=== PATIENT | female | born 1975 | race African-American/Black ===

== ENCOUNTER 2018-02-09 16:21 | Emergency (ER) | payer SELFPAY ==
[~2018-02-09] VITALS: Ht 167.6 cm; Wt 70.0 kg
[~2018-02-09 16:21] MED LIST: NAPROXEN
[2018-02-09] MEDS ORDERED: KETOROLAC 30MG/ML VIAL IV ONE (17:45)
[2018-02-09] MEDS ORDERED: MORPHINE SULFATE 10 MG/ML CPJ IV ONE (17:45)
[2018-02-09 17:46] LABS: CLARITY URINE CLEAR (CLEAR); COLOR URINE YELLOW (YELLOW); KETONES URINE NEGATIVE (NEGATIVE); LEUKOCYTE ESTERASE URINE NEGATIVE (NEGATIVE); NITRITE URINE NEGATIVE (NEGATIVE); OCCULT BLOOD URINE NEGATIVE (NEGATIVE); PROTEIN URINE NEGATIVE (NEGATIVE); SPECIFIC GRAVITY URINE 1.019 (1.005-1.030); UROBILINOGEN URINE 0.2 E.U./dL (0.2-1.0)
[2018-02-09 17:57] LABS: *AMPHETAMINES SCREEN URINE NEGATIVE (NEGATIVE); *BARBITURATES SCREEN URINE NEGATIVE (NEGATIVE); *BENZODIAZEPINES SCREEN URINE NEGATIVE (NEGATIVE); *COCAINE SCREEN URINE NEGATIVE (NEGATIVE)
[2018-02-09 17:58] LABS: METHADONE URINE SCREEN NEGATIVE (NEGATIVE); OPIATES URINE SCREEN NEGATIVE (NEGATIVE); PHENCYCLIDINE URINE SCREEN NEGATIVE (NEGATIVE)
[2018-02-09 18:01] LABS: CANNABINOID URINE SCREEN PRESUMTIVE POSITIVE (NEGATIVE)
[2018-02-09 19:31] VITALS: BP 121/75
== END 2018-02-09 20:03 | disposition home or self-care (01) ==
LOC: ER 16:21
DX: M25.552 Pain in left hip (principal); M54.32 Sciatica, left side; F12.10 Cannabis abuse, uncomplicated; M19.90 Unspecified osteoarthritis, unspecified site; F10.20 Alcohol dependence, uncomplicated; Z79.899 Other long term (current) drug therapy; Y90.9 Presence of alcohol in blood, level not specified
CPT/HCPCS: 80305; 81003; 81025; 96374; 96375; 99284; J1885; J2270

== ENCOUNTER 2018-10-07 18:54 | Emergency (ER) | payer MEDICAID ==
[~2018-10-07] VITALS: Ht 170.2 cm; Wt 59.0 kg
[2018-10-07] MEDS ORDERED: HYDROCODONE/ACETAMINOPHEN 5/325MG TABLET PO ONE (20:45)
[2018-10-07 20:49] VITALS: BP 122/71
== END 2018-10-07 20:51 | disposition home or self-care (01) ==
LOC: ER 18:54
DX: L03.012 Cellulitis of left finger (principal)
CPT/HCPCS: 10060; 99283

== ENCOUNTER 2019-02-15 07:22 | Emergency (ER) | payer MEDICAID ==
[~2019-02-15] VITALS: Ht 167.6 cm; Wt 91.0 kg
[2019-02-15 11:40] LABS: BASOPHILS % 0.5 % (0.0-2.0); EOSINOPHILS % 2.2 % (0.0-5.0); HEMOGLOBIN. 11.5 g/dL (12.0-16.0); LYMPHOCYTES % 29.2 % (20.0-50.0); MEAN CORPUSCULAR VOLUME 82.2 fL (81.0-99.0); MEAN PLATELET VOLUME 8.2 fl (7.4-10.4); MONOCYTES % 7.2 % (2.0-8.0); NEUTROPHILS % 60.9 % (40.0-76.0); PLATELET 163 x1000/uL (130-400); RED BLOOD CELL COUNT 4.25 mill/uL (4.2-5.4)
[2019-02-15 15:30] VITALS: BP 121/79
== END 2019-02-15 15:30 | disposition home or self-care (01) ==
LOC: ER 07:22
DX: N93.9 Abnormal uterine and vaginal bleeding, unspecified (principal); D25.9 Leiomyoma of uterus, unspecified
CPT/HCPCS: 36415; 76830; 76856; 81025; 86850; 86900; 99284

== ENCOUNTER 2019-03-29 09:19 | Emergency (ER) | payer MEDICAID ==
[~2019-03-29] VITALS: Ht 172.7 cm; Wt 75.0 kg
[2019-03-29] MEDS ORDERED: SODIUM CHLORIDE 0.9% 1,000 ML IV ONE (10:56)
[2019-03-29] MEDS ORDERED: MORPHINE SULFATE 4 MG/ML CPJ (NOT FOR IM USE) IV ONE (11:00)
[2019-03-29] MEDS ORDERED: KETOROLAC 30MG/ML VIAL IV ONE (11:00)
[2019-03-29] MEDS ORDERED: ACETAMINOPHEN 325MG TABLET PO ONE (11:00)
[2019-03-29 11:36] LABS: BASOPHILS % 0.6 % (0.0-2.0); HEMATOCRIT. 33.5 % (36.0-48.0); HEMOGLOBIN. 10.9 g/dL (12.0-16.0); LYMPHOCYTES % 21.6 % (20.0-50.0); MEAN CORPUSCULAR HEMOGLOBIN 26.8 pg (28.0-32.0); MEAN CORPUSCULAR VOLUME 82.3 fL (81.0-99.0); MEAN PLATELET VOLUME 10.4 fl (7.4-10.4); MONOCYTES % 5.6 % (2.0-8.0); NEUTROPHILS % 70.2 % (40.0-76.0); PLATELET 176 x1000/uL (130-400); RED BLOOD CELL COUNT 4.07 mill/uL (4.2-5.4)
[2019-03-29 11:45] LABS: CHLORIDE 110 mEq/L (98-107)
[2019-03-29 11:51] LABS: KETONES URINE 2+ (NEGATIVE); LEUKOCYTE ESTERASE URINE NEGATIVE (NEGATIVE); NITRITE URINE NEGATIVE (NEGATIVE); OCCULT BLOOD URINE 3+ (NEGATIVE); PH URINE 6.5 (4.5-8.0); PROTEIN URINE 1+ (NEGATIVE); SPECIFIC GRAVITY URINE 1.031 (1.005-1.030)
[2019-03-29 11:53] LABS: CLARITY URINE CLOUDY (CLEAR); COLOR URINE BLOODY (YELLOW)
[2019-03-29 14:03] VITALS: BP 104/51
[2019-03-31 04:07] LABS: CHLAMYDIA TRACHOMATIS NAA Negative (Negative); NEISSERIA GONORRHOEAE NAA Negative (Negative)
== END 2019-03-29 14:11 | disposition home or self-care (01) ==
LOC: ER 09:19
DX: N39.0 Urinary tract infection, site not specified (principal); G89.29 Other chronic pain; Z85.42 Personal history of malignant neoplasm of other parts of uterus
CPT/HCPCS: 36415; 80053; 81003; 83690; 85025; 87086; 87491; 87591; 96374; 99283; J2270; J7030

== ENCOUNTER 2019-07-02 10:01 | Inpatient (IN) | payer MEDICAID ==
[~2019-07-02] VITALS: Ht 167.6 cm; Wt 86.6 kg
[2019-07-02] MEDS ORDERED: FENTANYL CITRATE/PF 50MCG/ML 2ML VIAL IV ONE (10:45)
[2019-07-02 10:52] LABS: BASOPHILS % 0.5 % (0.0-2.0); HEMATOCRIT. 34.1 % (36.0-48.0); HEMOGLOBIN. 11.1 g/dL (12.0-16.0); LYMPHOCYTES % 27.2 % (20.0-50.0); MEAN CORPUSCULAR HEMOGLOBIN 25.7 pg (28.0-32.0); MEAN CORPUSCULAR VOLUME 79.1 fL (81.0-99.0); NEUTROPHILS % 65.3 % (40.0-76.0); PLATELET 179 x1000/uL (130-400); RED BLOOD CELL COUNT 4.31 mill/uL (4.2-5.4); RED CELL DISTRIBUTION WIDTH 19.6 % (11.6-14.6)
[2019-07-02 11:05] LABS: CHLORIDE 109 mEq/L (98-107)
[2019-07-02] MEDS ORDERED: ASPIRIN 81MG TABLET PO ONE (12:15)
[2019-07-02] MEDS ORDERED: IOHEXOL-350 100 ML BOTTLE ONE (12:29)
[2019-07-02 14:45] VITALS: BP 144/59
[2019-07-02] MEDS ORDERED: ENOXAPARIN 60MG/0.6ML SYR SUBCUT ONE (15:15)
[2019-07-02] MEDS ORDERED: KETOROLAC 15MG/ML VIAL IV ONE (15:15)
[2019-07-02 16:31] LABS: OPIATES URINE SCREEN NEGATIVE (NEGATIVE); PHENCYCLIDINE URINE SCREEN NEGATIVE (NEGATIVE)
[2019-07-02 16:32] LABS: *AMPHETAMINES SCREEN URINE NEGATIVE (NEGATIVE); *BARBITURATES SCREEN URINE NEGATIVE (NEGATIVE); *BENZODIAZEPINES SCREEN URINE NEGATIVE (NEGATIVE); *COCAINE SCREEN URINE NEGATIVE (NEGATIVE); METHADONE URINE SCREEN NEGATIVE (NEGATIVE)
[2019-07-02 16:42] LABS: CANNABINOID URINE SCREEN PRESUMTIVE POSITIVE (NEGATIVE)
[2019-07-02 17:17] VITALS: BP 144/89
[2019-07-02] MEDS ORDERED: ENOXAPARIN 40MG/0.4ML SYR SUBCUT ONE (19:00)
[2019-07-02 20:00] VITALS: BP 135/85
[2019-07-02] MEDS ORDERED: ZOLPIDEM TARTRATE 5MG TABLET PO PRN (22:00)
[2019-07-02] MEDS: METOPROLOL TARTRATE 25MG TABLET PO SCH (22:21)
[2019-07-02] MEDS: NITROGLYCERIN OINT 1GM/INCH UDPKT TD SCH (22:21)
[2019-07-03] VITALS: BP 111/66
[2019-07-03] MEDS: ACETAMINOPHEN 325MG TABLET PO PRN ×4 (02:13→21:30)
[2019-07-03 03:20] LABS: BASOPHILS % 0.4 % (0.0-2.0); EOSINOPHILS % 1.9 % (0.0-5.0); HEMOGLOBIN. 10.4 g/dL (12.0-16.0); LYMPHOCYTES % 22.4 % (20.0-50.0); MEAN CORPUSCULAR HEMOGLOBIN 25.6 pg (28.0-32.0); MEAN CORPUSCULAR VOLUME 78.7 fL (81.0-99.0); MEAN PLATELET VOLUME 8.9 fl (7.4-10.4); MONOCYTES % 6.5 % (2.0-8.0); NEUTROPHILS % 68.8 % (40.0-76.0); PLATELET 166 x1000/uL (130-400); RED BLOOD CELL COUNT 4.06 mill/uL (4.2-5.4); RED CELL DISTRIBUTION WIDTH 19.9 % (11.6-14.6)
[2019-07-03 03:26] LABS: CHLORIDE 109 mEq/L (98-107)
[2019-07-03 04:00] VITALS: BP 93/63
[2019-07-03] MEDS: NITROGLYCERIN OINT 1GM/INCH UDPKT TD SCH ×3 (06:37→21:32)
[2019-07-03 08:00] VITALS: BP 96/62
[2019-07-03] MEDS: METOPROLOL TARTRATE 25MG TABLET PO SCH ×2 (09:00→21:00)
[2019-07-03] MEDS ORDERED: ENOXAPARIN 40MG/0.4ML SYR SUBCUT SCH (09:00)
[2019-07-03] MEDS: ASPIRIN 81MG TABLET PO SCH (09:32)
[2019-07-03 12:00] VITALS: BP 117/78
[2019-07-03] MEDS: ONDANSETRON HCL 4MG/2ML INJ IV PRN ×2 (12:47→21:31)
[2019-07-03 16:00] VITALS: BP 110/61
[2019-07-03 20:00] VITALS: BP 109/69
[2019-07-03] MEDS ORDERED: ATORVASTATIN CALCIUM 40MG TABLET PO SCH (21:00)
[2019-07-03] MEDS: ATORVASTATIN CALCIUM 40MG TABLET PO SCH (21:30)
[2019-07-03] MEDS: ZOLPIDEM TARTRATE 5MG TABLET PO PRN (21:31)
[2019-07-04] VITALS: BP 107/64
[2019-07-04] MEDS: ACETAMINOPHEN 325MG TABLET PO PRN ×2 (03:31→13:19)
[2019-07-04 04:00] VITALS: BP 102/63
[2019-07-04] MEDS: NITROGLYCERIN OINT 1GM/INCH UDPKT TD SCH ×3 (05:58→22:00)
[2019-07-04 07:00] LABS: BASOPHILS % 0.4 % (0.0-2.0); EOSINOPHILS % 1.7 % (0.0-5.0); HEMATOCRIT. 33.9 % (36.0-48.0); HEMOGLOBIN. 11.1 g/dL (12.0-16.0); LYMPHOCYTES % 28.3 % (20.0-50.0); MEAN CORPUSCULAR VOLUME 79.6 fL (81.0-99.0); MEAN PLATELET VOLUME 9.3 fl (7.4-10.4); MONOCYTES % 6.9 % (2.0-8.0); NEUTROPHILS % 62.7 % (40.0-76.0); PLATELET 170 x1000/uL (130-400); RED BLOOD CELL COUNT 4.26 mill/uL (4.2-5.4); RED CELL DISTRIBUTION WIDTH 20.6 % (11.6-14.6)
[2019-07-04] MEDS ORDERED: IODIXANOL 320MG/ML 100 ML BOTTLE IV ONE (07:37)
[2019-07-04] MEDS ORDERED: LIDOCAINE HCL 1% 20ML VIAL (Pyxis) INJ ONE ×2 (07:37→08:26)
[2019-07-04 07:46] LABS: CHLORIDE 109 mEq/L (98-107)
[2019-07-04] MEDS ORDERED: MIDAZOLAM HCL 2 MG/2 ML VIAL ONE ×2 (08:05→08:26)
[2019-07-04] MEDS ORDERED: FENTANYL CITRATE/PF 50MCG/ML 2ML VIAL ONE (08:05)
[2019-07-04] MEDS: METOPROLOL TARTRATE 25MG TABLET PO SCH ×2 (09:00→22:07)
[2019-07-04] MEDS: ASPIRIN 81MG TABLET PO SCH (09:00)
[2019-07-04 14:30] VITALS: BP 102/71
[2019-07-04] MEDS: DOCUSATE SODIUM 250MG CAPSULE PO SCH (15:47)
[2019-07-04] MEDS: MORPHINE SULFATE 2 MG/ML CPJ (NOT FOR IM USE) IV PRN ×2 (15:55→22:09)
[2019-07-04 16:00] VITALS: BP 90/58
[2019-07-04 20:00] VITALS: BP 113/68
[2019-07-04] MEDS: ATORVASTATIN CALCIUM 40MG TABLET PO SCH (22:07)
[2019-07-05] MEDS: ZOLPIDEM TARTRATE 5MG TABLET PO PRN (00:23)
[2019-07-05 01:04] VITALS: BP 117/59
[2019-07-05 04:00] VITALS: BP 113/67
[2019-07-05] MEDS: NITROGLYCERIN OINT 1GM/INCH UDPKT TD SCH (05:55)
[2019-07-05 06:34] LABS: BASOPHILS % 0.4 % (0.0-2.0); EOSINOPHILS % 2.1 % (0.0-5.0); HEMATOCRIT. 37.7 % (36.0-48.0); HEMOGLOBIN. 12.1 g/dL (12.0-16.0); LYMPHOCYTES % 24.3 % (20.0-50.0); MEAN CORPUSCULAR HEMOGLOBIN 25.7 pg (28.0-32.0); MEAN CORPUSCULAR VOLUME 80.2 fL (81.0-99.0); MEAN PLATELET VOLUME 9.4 fl (7.4-10.4); MONOCYTES % 7.4 % (2.0-8.0); NEUTROPHILS % 65.8 % (40.0-76.0); PLATELET 173 x1000/uL (130-400); RED CELL DISTRIBUTION WIDTH 20.1 % (11.6-14.6)
[2019-07-05 07:50] LABS: CHLORIDE 107 mEq/L (98-107)
[2019-07-05 08:00] VITALS: BP 108/67
[2019-07-05] MEDS: METOPROLOL TARTRATE 25MG TABLET PO SCH (09:00)
[2019-07-05] MEDS: DOCUSATE SODIUM 250MG CAPSULE PO SCH (09:58)
[2019-07-05] MEDS: ASPIRIN 81MG TABLET PO SCH (09:58)
[2019-07-05 12:00] VITALS: BP 110/68
[2019-07-05] MEDS ORDERED: ASPI-1158 MT (12:27)
[2019-07-05] MEDS ORDERED: ATOR20TA MT (12:27)
[2019-07-05 13:25] VITALS: BP 110/68
== END 2019-07-05 13:50 | disposition home or self-care (01) | DRG 190 ==
LOC: ER 10:01 → 5WST 12:52 → EDBEDREQTM 12:59 → ENRESERV 15:48
PROVIDERS: ADMIT Internal Medicine; ATTEND Internal Medicine
PROC: 4A023N7 Measurement of Cardiac Sampling and Pressure, Left Heart, Percutaneous Approach (ICD-10-PCS; principal; 2019-07-04)
PROC: B2111ZZ Fluoroscopy of Multiple Coronary Arteries using Low Osmolar Contrast (ICD-10-PCS; 2019-07-04)
PROC: B2151ZZ Fluoroscopy of Left Heart using Low Osmolar Contrast (ICD-10-PCS; 2019-07-04)
PROC: B41F1ZZ Fluoroscopy of Right Lower Extremity Arteries using Low Osmolar Contrast (ICD-10-PCS; 2019-07-04)
DX: I21.4 Non-ST elevation (NSTEMI) myocardial infarction (principal); E87.8 Other disorders of electrolyte and fluid balance, not elsewhere classified; D64.9 Anemia, unspecified; E78.5 Hyperlipidemia, unspecified; F12.90 Cannabis use, unspecified, uncomplicated; F17.210 Nicotine dependence, cigarettes, uncomplicated; Z86.718 Personal history of other venous thrombosis and embolism; Z86.711 Personal history of pulmonary embolism; Z79.899 Other long term (current) drug therapy
CPT/HCPCS: 36415; 71045; 71275; 80048; 80053; 80061; 80305; 83880; 84443; 84484; 85025; 85379; 93005; 93306; 93458; 93970; 99291; C1760; C1769; C1887; C1893; J1644; J1650; J1885; J2250; J2270; J2405; J3010; J3490; Q9967

== ENCOUNTER 2020-12-03 16:40 | Emergency (ER) | payer MEDICAID ==
[~2020-12-03] VITALS: Ht 165.1 cm; Wt 75.0 kg
[~2020-12-03 16:40] MED LIST changes: +ASPI-1406 MT; +ATOR20TA MT; -NAPROXEN
[2020-12-03 17:09] VITALS: BP 131/89
[2020-12-03] MEDS ORDERED: ACETAMINOPHEN 325MG TABLET PO ONE (18:30)
== END 2020-12-03 20:01 | disposition home or self-care (01) ==
LOC: ER 16:40
DX: S06.9X9A Unspecified intracranial injury with loss of consciousness of unspecified duration, initial encounter (principal); S93.401A Sprain of unspecified ligament of right ankle, initial encounter; R68.84 Jaw pain; H91.92 Unspecified hearing loss, left ear; Z79.01 Long term (current) use of anticoagulants; Z79.82 Long term (current) use of aspirin; Y04.0XXA Assault by unarmed brawl or fight, initial encounter; Y93.89 Activity, other specified; Y92.018 Other place in single-family (private) house as the place of occurrence of the external cause; Z86.718 Personal history of other venous thrombosis and embolism
CPT/HCPCS: 70486; 73610; 73630; 99285

== ENCOUNTER 2023-04-02 11:07 | Emergency (ER) | payer MEDICAID ==
[~2023-04-02] VITALS: Ht 172.7 cm; Wt 74.0 kg
[2023-04-02 11:12] VITALS: BP 155/104; TEMP 98.3; O2SAT 100
[2023-04-02 11:15] VITALS: PULSE 95; RESP 16
[2023-04-02 11:50] LABS: CLARITY URINE CLEAR (CLEAR); COLOR URINE YELLOW (YELLOW); GLUCOSE URINE NEGATIVE (NEGATIVE); KETONES URINE NEGATIVE (NEGATIVE); LEUKOCYTE ESTERASE URINE NEGATIVE (NEGATIVE); NITRITE URINE NEGATIVE (NEGATIVE); OCCULT BLOOD URINE NEGATIVE (NEGATIVE); PH URINE 6.5 (4.5-8.0); PROTEIN URINE NEGATIVE (NEGATIVE); SPECIFIC GRAVITY URINE 1.018 (1.005-1.030)
[2023-04-02 12:05] LABS: BASOPHILS % 0.4 % (0.0-2.0); EOSINOPHILS % 2.3 % (0.0-5.0); HEMATOCRIT. 38.7 % (36.0-48.0); HEMOGLOBIN. 12.6 g/dL (12.0-16.0); LYMPHOCYTES % 30.7 % (20.0-50.0); MEAN CORPUSCULAR HEMOGLOBIN 26.8 pg (28.0-32.0); MEAN CORPUSCULAR HGB CONC 32.5 g/dL (31.0-37.0); MEAN CORPUSCULAR VOLUME 82.4 fL (81.0-99.0); NEUTROPHILS % 59.6 % (40.0-76.0); PLATELET 160 x1000/uL (130-400); RED CELL DISTRIBUTION WIDTH 22.1 % (11.6-14.6); WHITE BLOOD COUNT 5.9 x1000/uL (4.5-11.0)
[2023-04-02 12:13] LABS: ADD RBC MORPHOLOGY YES; DIFFERENTIAL COMMENT 1
[2023-04-02 12:17] LABS: CHLORIDE 106 mEq/L (98-107); INDEX HEMOLYSI 1 (1-3); INDEX ICTERIC 1 (1-4); INDEX LIPEMIC 1 (1-3); POTASSIUM 4.1 mEq/L (3.5-5.1); SODIUM 139 mEq/L (136-145)
[2023-04-02 12:23] LABS: ALANINE AMINOTRANSFERASE 33 IU/L (13-61); ALBUMIN 4.2 g/dL (3.4-5.0); ASPARTATE AMINOTRANSFERASE 27 IU/L (15-37); BILIRUBIN TOTAL 0.5 mg/dL (0.1-1.0); CALCIUM 9.8 mg/dL (8.5-10.1); CARBON DIOXIDE 28 mEq/L (21-32); CREATININE 0.7 mg/dL (0.6-1.3); GLUCOSE 94 mg/dL (70-105); PROTEIN TOTAL 7.8 g/dL (6.0-8.3); UREA NITROGEN BLOOD 10 mg/dL (7-21)
[2023-04-02 12:27] LABS: HCG SCREEN NEGATIVE
[2023-04-02] MEDS ORDERED: KETOROLAC 30MG/ML VIAL IM ONE (12:45)
[2023-04-02 13:08] LABS: PLATELET ESTIMATE NORMAL
[2023-04-02 13:09] LABS: ANISOCYTOSIS 2+; MICROCYTOSIS 1+
== END 2023-04-02 14:02 | disposition home or self-care (01) ==
LOC: ER 11:07
DX: N93.9 Abnormal uterine and vaginal bleeding, unspecified (principal); I10 Essential (primary) hypertension; Z98.890 Other specified postprocedural states
CPT/HCPCS: 99284; 76856; 80053; 81003; 81025; 84703; 85025; 36415; J1885

== ENCOUNTER 2023-04-24 09:38 | Emergency (ER) | payer MEDICAID ==
[~2023-04-24] VITALS: Ht 167.6 cm; Wt 80.0 kg
[2023-04-24 09:52] VITALS: TEMP 99; O2SAT 99
[2023-04-24] MEDS ORDERED: IBUPROFEN 600MG TABLET PO STA (12:01)
[2023-04-24 12:49] VITALS: BP 123/87; PULSE 94; RESP 17
== END 2023-04-24 12:50 | disposition home or self-care (01) ==
LOC: ER 09:38
DX: M79.89 Other specified soft tissue disorders (principal); I10 Essential (primary) hypertension; Z98.890 Other specified postprocedural states
CPT/HCPCS: 99281

== ENCOUNTER 2024-06-10 11:48 | Emergency (ER) | payer MEDICAID, OTHER ==
[~2024-06-10] VITALS: Ht 167.6 cm; Wt 86.6 kg
[2024-06-10 12:01] VITALS: TEMP 98.3; O2SAT 100
[2024-06-10] MEDS: KETOROLAC 15MG/ML VIAL IM ONE (14:30)
[2024-06-10 16:10] LABS: BASOPHILS % 0.3 % (0.0-2.0); CHLORIDE 106 mEq/L (98-107); EOSINOPHILS % 2.1 % (0.0-5.0); HEMOGLOBIN. 13.2 g/dL (12.0-16.0); LYMPHOCYTES % 34.7 % (20.0-50.0); MEAN CORPUSCULAR HEMOGLOBIN 27.9 pg (28.0-32.0); MEAN CORPUSCULAR HGB CONC 32.3 g/dL (31.0-37.0); MEAN CORPUSCULAR VOLUME 86.6 fL (81.0-99.0); MEAN PLATELET VOLUME 9.4 fl (7.4-10.4); MONOCYTES % 6.2 % (2.0-8.0); NEUTROPHILS % 56.7 % (40.0-76.0); PLATELET 158 x1000/uL (130-400); POTASSIUM 4.2 mEq/L (3.5-5.1); RED BLOOD CELL COUNT 4.74 mill/uL (4.2-5.4); RED CELL DISTRIBUTION WIDTH 16.8 % (11.6-14.6); SODIUM 139 mEq/L (136-145); WHITE BLOOD COUNT 6.2 x1000/uL (4.5-11.0)
[2024-06-10 16:11] LABS: CALCIUM 10.2 mg/dL (8.7-10.4); CARBON DIOXIDE 28 mEq/L (21-32)
[2024-06-10 16:16] LABS: CREATININE 0.7 mg/dL (0.6-1.0); GLUCOSE 95 mg/dL (70-105); UREA NITROGEN BLOOD 12 mg/dL (9-23)
[2024-06-10 16:52] LABS: CLARITY URINE CLEAR (CLEAR); COLOR URINE YELLOW (YELLOW); GLUCOSE URINE NEGATIVE (NEGATIVE); KETONES URINE NEGATIVE (NEGATIVE); LEUKOCYTE ESTERASE URINE TRACE (NEGATIVE); NITRITE URINE NEGATIVE (NEGATIVE); OCCULT BLOOD URINE 2+ (NEGATIVE); PROTEIN URINE NEGATIVE (NEGATIVE); SPECIFIC GRAVITY URINE 1.018 (1.005-1.030); UROBILINOGEN URINE 0.2 E.U./dL (0.2-1.0)
[2024-06-10 17:29] LABS: BACTERIA URINE TRACE; RBC URINE 0-2 /hpf (0-2); SQUAMOUS EPITHELIAL CELL URINE 1+ /lpf (RARE/1+)
[2024-06-10 17:50] VITALS: BP 128/76; PULSE 80; RESP 12; O2SAT 98
== END 2024-06-10 17:50 | disposition home or self-care (01) ==
LOC: ER 11:59
DX: N93.9 Abnormal uterine and vaginal bleeding, unspecified (principal); I10 Essential (primary) hypertension; Z79.82 Long term (current) use of aspirin; Z98.890 Other specified postprocedural states
CPT/HCPCS: 99285; 76830; 76856; 80048; 81003; 81025; 85025; 36415; 96372; J1885